=== PATIENT | female | born 1995 | race Caucasian/White ===

== ENCOUNTER 2017-12-04 12:53 | Emergency (ER) | payer OTHER ==
--- NOTE | 2017-12-04 16:50 | UC ---
Throat Pain/Nasal Ty HPI - HPI Summary HPI Summary: PT with cough x 24 hours. Pt roomate with influenza, multipel contact. unknown flu vaccine this year Pt with sore throat L>R no ear pain no analgesia taken pt with painful swallowing Pt had yogurt today with painful swallowing. no drooling + water, coffee no fever, chills + nasal congestion, + PND No rashes Pt's medications reviewed LMP nov 3 - History of Current Complaint Chief Complaint: UCRespiratory Stated Complaint: ST/COUGH Time Seen by Provider: 12/04/17 16:07 Hx Obtained From: Patient Hx Last Menstrual Period: 11/24/17 Onset/Duration: Gradual Onset, Lasting Days - 24 hours Severity: Moderate Pain Intensity: 7 Pain Scale Used: 0-10 Numeric Cough: Nonproductive Associated Signs & Symptoms: Positive: Nasal Discharge - Epiglottits Risk Factors Epiglottis Risk Factors: Negative - Allergies/Home Medications Allergies/Adverse Reactions: Allergies Allergy/AdvReac Type Severity Reaction Status Date / Time No Known Allergies Allergy Verified 12/04/17 15:41 Home Medications: Home Medications Levothyroxine TAB* [Synthroid TAB*] 50 mcg PO DAILY 12/04/17 [History Confirmed 12/04/17] PMH/Surg Hx/FS Hx/Imm Hx Previously Healthy: Yes Endocrine History: Thyroid Disease - Surgical History Surgical History: None - Family History Known Family History: Positive: Cardiac Disease - Social History Occupation: Student Lives: Dormitory/Roommates Alcohol Use: Weekly Substance Use Type: None Smoking Status (MU): Never Smoked Tobacco Review of Systems Constitutional: Chills, Fatigue Eyes: Negative ENT: Sore Throat, Nasal Discharge, Sinus Congestion Respiratory: Cough All Other Systems Reviewed And Are Negative: Yes Physical Exam Triage Information Reviewed: Yes Appearance: Well-Appearing, No Pain Distress, Well-Nourished Vital Signs: Initial Vital Signs Temp 99.8 F 12/04/17 15:42 Pulse 96 12/04/17 15:42 Resp 20 12/04/17 15:42 BP 126/79 12/04/17 15:42 Pulse Ox 100 12/04/17 15:42 Vital Signs Reviewed: Yes Eye Exam: Normal Eyes: Positive: Conjunctiva Clear ENT: Positive: Nasal congestion, Uvula midline, Other - TM x2 clear turbinates inflammed and boggy + PND + diffuse erythema no exudate uvula midline. Negative : Sinus tenderness Dental Exam: Normal Neck exam: Normal Neck: Positive: Supple, Nontender, Other: - mild submandicular LA Respiratory Exam: Normal Respiratory: Positive: Chest non-tender, Lungs clear, Normal breath sounds, No respiratory distress, No accessory muscle use Cardiovascular Exam: Normal Cardiovascular: Positive: RRR, No Murmur, Pulses Normal Abdominal Exam: Normal Abdomen Description: Positive: Nontender, No Organomegaly, Soft Bowel Sounds: Positive: Present Musculoskeletal Exam: Normal Neurological Exam: Normal Neurological: Positive: Alert Psychological Exam: Normal Psychological: Positive: Normal Response To Family Skin Exam: Normal Throat Pain/Nasal Course/Dx - Course Course Of Treatment: Pt with congestion, sore throat and PND. Pt with multiple influenza exposures. flu and strep neg. will Rx tamiflu. secretion precaution. motrin/apap. cold fluids. gargle. declined offer to speak to parent. return precautions. declined class note - Differential Dx/Diagnosis Provider Diagnoses: pharyngitis. influenza exposure Discharge - Discharge Plan Condition: Stable Disposition: HOME Prescriptions: Fluticasone NASAL SPRAY 50MCG* [Flonase NASAL SPRAY 50MCG*] 2 spray BOTH NARES DAILY #1 btl Oseltamivir Phosphate [Tamiflu] 75 mg PO DAILY #10 capsule Patient Education Materials: Pharyngitis (ED), Viral Syndrome (ED) Referrals: No Primary Care Phys,NOPCP [Primary Care Provider] - Additional Instructions: - Stay well hydrated. Drink plenty of non-alcoholic, non-caffinated beverages. - Alternate ibuprofen (Advil, Motrin) 600mg and Tylenol every 3 hours for pain or fever. Take with food. Do NOT take for more than 4-5 days. -cold foods (popsicle, jello, apple sauce) may be soothing to your throat - okay to gargle and spit with warm salt water, 2-3 times a day - These infections are spread by secretions - do NOT share eating or drinking utensils - clean items you share with other people such as cell phones, computer mouse, TV remote, computer tablets, etc. After you have taken Tamiflu for 3 days, change your toothbrush and your pillowcase. - use nasal spray as prescribed - get plenty of restful sleep - humidify the air in the room where you sleep - boil water, run a hot steam shower, vaporizer, cups of water by heat register - okay to take over the counter decongestant and cough medication - contact student health, return here, or go to the emergency department with questions or concerns
== END 2017-12-04 17:12 | disposition home or self-care (01) ==
LOC: UCCORT 12:53
DX: J02.9 Acute pharyngitis, unspecified (principal); Z20.828 Contact with and (suspected) exposure to other viral communicable diseases; E07.9 Disorder of thyroid, unspecified
CPT/HCPCS: 87502; 87651; 99202; G0463